=== PATIENT | female | born 1995 | race Caucasian/White ===

== ENCOUNTER → 2019-08-23 | Emergency (ER) | payer SELFPAY | PROVIDERS: Emergency Provider Emergency Medicine; Family Provider Physician Assistant Medical; Visit Provider Emergency Medicine | DX: J20.9 Acute bronchitis, unspecified (principal) | CPT/HCPCS: 71046; 94640; 99283 ==

== ENCOUNTER 2019-09-15 18:27 | Emergency (ER) | payer BC, SELFPAY ==
--- NOTE | 2019-09-15 | US_ITS ---
WS: [id number] TRANSABDOMINAL PELVIC AND TRANSVAGINAL PELVIC ULTRASOUND HISTORY: VAGINAL BLEEDING LAST 12 HOURS WITH PAIN COMPARISON: 01/20/2019 Uterus: 5.2 cm x 4.6 cm x 3.0 cm. Normal size. No mass or abnormality. Endometrium: 0.4 cm. Normal homogeneity throughout. Right ovary: prior RIGHT oophorectomy. Left ovary: 3.0 cm x 2.2 cm x 2.8 cm. Small follicles. No cystic or solid mass. Normal vascularity. No free fluid. US/US pelvic with transvaginal IMPRESSION: 1. Status post RIGHT nephrectomy. 2. No intrauterine gestation. Normal endometrium. If patient does have a posit bridget beta hCG ectopic cannot be excluded.
[2019-09-15 18:30] VITALS: BP 127/84; PULSE 85; RESP 18; TEMP 36.4; O2SAT 98; BMI 32.8
--- NOTE | 2019-09-15 18:39 | ED_ITS ---
Entered by Lin Daly, acting as scribe for HPI - Female Genitourinary General: Chief complaint: Vaginal Bleeding Stated complaint: PREG-FOUND OUT YESTERDAY/BLEEDING Time Seen by Provider: 09/15/19 18:39 Source: patient and family Mode of arrival: ambulatory Limitations: no limitations History of Present Illness: HPI Narrative: Marium is a very nice 24-year-old female who comes in complaining of vaginal bleeding and pelvic cramping. She recently had a positive home test. This will be her second her first was successful with a healthy child. She denies any fever or other discharge. She has no radiation of pain, fever, dysuria, hematuria or other complaints. MD elicited complaint: vaginal bleeding Onset (ago): day(s) (last night) Location of symptoms: vaginal Severity: moderate Quality of pain: cramping Vaginal bleeding: moderate and # pads per hour (2-3 a hour) Exacerbating factors: none Relieving factors: none Associated symptoms: Reports abdominal pain and vaginal bleeding; Deny headache(s), syncope or vaginal discharge Treatment prior to arrival: none Patient : Yes Review of Systems General: Reports: other (negative unless marked) Const: Reports: other (loss of appetite ) Eyes: Denies: change in vision or blurry vision ENMT: Denies: throat pain, painful swallowing, hoarseness, ear pain, ear discharge, Change in hearing or nasal discharge Card: Denies: chest pain, palpitations, irregular heart rhythm, syncope, pre- syncope, shortness of breath on exertion or shortness of breath when lying down Resp: Denies: shortness of breath, productive cough, non-productive cough, wheezing, coughing up blood or chest congestion GI: Reports: abdominal pain : Reports: vaginal bleeding; Denies: flank pain, painful urination, urinary frequency, urinary urgency, decreased urine ouput, urinary incontinence, blood in urine or vaginal discharge Musc: Denies: neck pain, back pain, extremity pain, extremity swelling, joint pain, joint swelling, joint warmth or joint stiffness Skin/Breast: Denies: rash, skin tenderness or yellow skin Neuro: Denies: headache, numbness in extremities, weakness in extremities, changes in sensation, lack of coordination, difficulty walking, dizziness, vertigo or confusion Endo: Denies: excessive thirst, tired all the time, cold intolerance, excessive sweating, flushing or hot flashes Perico/Lymph: Denies: easy bruising, easy bleeding, petechiae or enlarged lymph nodes All/Imm: Denies: hives, throat swelling, tongue swelling, facial swelling or acute wheezing PFSH ED PFSH: Statuses (acute, chronic, etc) shown below reflect problem list status as previously entered and may not be historically accurate Social History Smoking and tobacco status: never smoked Physical Exam Const: COMMON NORMALS: no apparent distress, oriented x3, no limitations, healthy appearing and well nourished EXAM LIMITATIONS: no altered mental status GENERAL APPEARANCE: cooperative, well kempt and well developed ORIENTATION/CONSCIOUSNESS: Yes awake HENMT: COMMON NORMALS: normocephalic, head/scalp atraumatic, hearing grossly normal bilaterally, external ears normal, EAC's normal, external nose normal and moist oral mucous membranes HEAD & SCALP: normal to inspection, normocephalic and atraumatic FACE & SINUS: normal facial exam and face symmetric NOSE: external nose normal and nares normal EXTERNAL EAR: Yes external ears normal EXTERNAL AUDITORY CANAL: EAC's normal MOUTH: oral and palatal mucosa normal and tongue normal Eye: COMMON NORMALS: PERRL, EOMs intact bilaterally, conjunctivae normal and no scleral icterus GENERAL EYE: normal appearance of both eyes and normal light reflex CONJUNCTIVA: Yes conjunctivae normal SCLERA: sclerae normal CORNEA: Yes corneas normal PUPIL: Yes PERRL DIRECT OPHTHALMOSCOPY: Yes normal light reflex Neck/C-Spine: COMMON NORMALS: full ROM, no lymphadenopathy, supple, no meningeal signs and no JVD GENERAL: Yes normal visual inspection and Yes trachea midline CERVICAL SPINE: Yes cervical ROM normal Chest: COMMONS NORMALS: inspection of chest normal and palpation of chest normal Resp: COMMON NORMALS: normal respiratory effort, no retractions, no use of accessory muscles and clear to auscultation bilaterally EFFORT & INSPECTION: Yes able to speak in complete sentences AUSCULTATION: clear to auscultation bilaterally Cardio: COMMON NORMALS: no JVD, regular rate, regular rhythm, S1 normal heart sound, S2 normal heart sound, no gallops, no clicks, no murmurs and no rub JUGULAR VENOUS DISTENTION: no JVD RATE: regular rate RHYTHM: regular rhythm HEART SOUNDS: S1 normal and S2 normal GI: COMMON NORMALS: soft to palpation, non-tender, no hepatosplenomegaly and no masses INSPECTION: Yes normal to inspection PALPATION: Yes soft and Yes no hepatosplenomegaly : COMMON NORMALS: Yes no CVA tenderness BLADDER/KIDNEY EXAM: Yes no CVA tenderness SPECULUM EXAM - VAGINA: Yes vaginal bleeding, No tissue present in vagina, No vaginal mass, No vaginal swelling, No vaginal tenderness, No vaginal discharge and No vaginal ecchymosis SPECULUM EXAM - CERVIX: No cervical os open, Yes cervical os closed, No tissue present in the cervical os, Yes cervical bleeding, Yes watery cervix and No cervical tenderness BIMANUAL EXAM - VAGINA & UTERUS: Yes normal cervical palpation, No cervical motion tenderness, No cervical tenderness and Yes uterine size normal BIMANUAL EXAM - ADNEXA, OTHER: No adnexal tenderness and No cul-de-sac tenderness RECTO-VAGINAL: no cul-de-sac tenderness OB/EXTERNAL & SPECULUM: vaginal bleeding; no tissue noted in vagina and cervical os open Back/Pelvis: COMMON NORMALS: no CVA tenderness, thoracic and lumbar spine nor mal to inspection, no thoracic nor lumbar tenderness and thoraco-lumbar ROM normal Extremity: COMMON NORMALS: normal to inspection, full ROM, normal capillary refill, no joint enlargement, no clubbing, cyanosis or edema and no calf tenderness Neuro: COMMON NORMALS: oriented x3, CN's II-XII intact bilaterally, moves all extremities, no focal motor deficits and no sensory deficits noted MENINGEAL SIGNS: Yes no meningeal signs Psych: COMMON NORMALS: mental status grossly normal, thought process normal, cooperative, affect normal, speech normal and activity/motor behavior normal APPEARANCE: Yes well kempt SPEECH: Yes normal speech THOUGHT PROCESS: normal thought process Skin: COMMON NORMALS: no rashes or lesions noted, skin turgor normal, no jaundice, no petechiae and no mottling GENERAL SKIN EXAM: no rashes or lesions noted and turgor normal Course Vital Signs: Vital signs: Vital Signs Temperature 97.5 F L 09/15/19 18:30 Pulse Rate 78 09/15/19 20:48 Respiratory Rate 16 09/15/19 20:48 Blood Pressure 128/82 09/15/19 20:48 Pulse Oximetry 96 09/15/19 20:48 MDM - Female MDM Narrative: Medical decision making narrative: Arrival - Marium 24-year-old female comes in with vaginal bleeding and cramping. Differential includes normal , threatened miscarriage or incomplete , ectopic preg shamir among many others. This time we will begin with lab work, ultrasound and pelvic exam to determine the best course of action. 2005 -the patient is relieved to hear that she is not . Her quantitative hCG is as low as our lab goes. On exam she has vaginal bleeding but her cervical loss is closed. It is unclear now whether the patient really even had a positive home test but the incomplete miscarriage would explain her positive home test and her early vaginal bleeding. There is no sign of ectopic on her ultrasound and her endometrium is thin. The patient agrees to follow-up with Dr. Moreno for repeat testing but at this time she is feeling better and would like to go home. Her labs show no sign of anemia and she does not have any lightheadedness, dizziness or near syncopal type symptoms. Lab Data: Attestation: I reviewed the patient's lab results. Labs: Lab Results 09/15/19 09/15/19 09/15/19 Range/Units 18:48 18:48 18:48 WBC 6.9 (4.0-10.0) 10^3/ uL RBC 4.07 L (4.1-5.3) 10^6/u L Hgb 11.8 (11.5-15.3) g/dL Hct 35.5 L (37.0-47.0) % MCV 87.2 (81-99) fL MCH 29.0 (28.0-34.0) pg MCHC 33.2 (30.0-36.0) g/dL RDW 12.8 (12.1-15.1) % Plt Count 316 (130-400) 10^3/c mm MPV 9.5 (7.4-10.4) fL Neut % (Auto) 68.0 % Lymph % (Auto) 20.4 % Barron % (Auto) 10.0 % Eos % (Auto) 0.6 % Baso % (Auto) 0.6 % Neut # (Auto) 4.7 (1.8-7.7) 10^3/u L Lymph # (Auto) 1.4 (0.8-4.8) 10^3/u L Barron # (Auto) 0.7 (0.2-0.9) 10^3/u L Eos # (Auto) 0.0 (0.0-0.8) 10^3/u L Baso # (Auto) 0.0 (0.0-0.1) 10^3/u L Nucleated RBC % (a uto) 0 % Nucleated RBCs # 0.0 /100WBC Sodium 137 (136-145) mmol/L Potassium 3.8 (3.5-5.1) mmol/L Chloride 100 (98-107) mmol/L Carbon Dioxide 23 (22-29) mmol/L Anion Gap 17.8 (5-19) BUN 10 (6-20) mg/dL Creatinine 0.8 (0.5-0.9) mg/dL GFR Calculation 87.4 L (90-130) mL/min Glucose 126 H (74-109) mg/dL Calcium 9.7 (8.5-10.5) mg/dL Total Bilirubin 0.3 (0.15-1.2) mg/dL AST 22 (0-32) U/L ALT 15 (0-33) U/L Alkaline Phosphata se 102 (35-105) IU/L Total Protein 7.5 (6.6-8.7) g/dL Albumin 4.6 (3.5-5.2) g/dL Globulin 2.9 (1.3-4.6) g/dL Ser , Tree i-Qnt 0.50 mIU/mL Urine Color (Yellow) Urine Appearance (CLEAR) Urine pH (5-7) Ur Specific Gravit y (1.005-1.030) Urine Protein (Negative) Urine Glucose (UA) (Normal) Urine Ketones (Negative) Urine Occult Blood (Negative) Urine Nitrate (Negative) Urine Bilirubin (NEGATIVE) Urine Urobilinogen (Negative) mg/dL Ur Leukocyte Jaycee ase (Negative) Urine RBC (0-2) /hpf Urine WBC (0-5) /hpf Ur Squamous Epith Cells (0-5) Urine Bacteria (NONE) Urine Mucus Blood Type A Positive 09/15/19 Range/Units 19:10 WBC (4.0-10.0) 10^3/ uL RBC (4.1-5.3) 10^6/u L Hgb (11.5-15.3) g/dL Hct (37.0-47.0) % MCV (81-99) fL MCH (28.0-34.0) pg MCHC (30.0-36.0) g/dL RDW (12.1-15.1) % Plt Count (130-400) 10^3/c mm MPV (7.4-10.4) fL Neut % (Auto) % Lymph % (Auto) % Barron % (Auto) % Eos % (Auto) % Baso % (Auto) % Neut # (Auto) (1.8-7.7) 10^3/u L Lymph # (Auto) (0.8-4.8) 10^3/u L Barron # (Auto) (0.2-0.9) 10^3/u L Eos # (Auto) (0.0-0.8) 10^3/u L Baso # (Auto) (0.0-0.1) 10^3/u L Nucleated RBC % (a uto) % Nucleated RBCs # /100WBC Sodium (136-145) mmol/L Potassium (3.5-5.1) mmol/L Chloride (98-107) mmol/L Carbon Dioxide (22-29) mmol/L Anion Gap (5-19) BUN (6-20) mg/dL Creatinine (0.5-0.9) mg/dL GFR Calculation (90-130) mL/min Glucose (74-109) mg/dL Calcium (8.5-10.5) mg/dL Total Bilirubin (0.15-1.2) mg/dL AST (0-32) U/L ALT (0-33) U/L Alkaline Phosphata se (35-105) IU/L Total Protein (6.6-8.7) g/dL Albumin (3.5-5.2) g/dL Globulin (1.3-4.6) g/dL Ser , Tree i-Qnt mIU/mL Urine Color Yellow (Yellow) Urine Appearance Sl hazy (CLEAR) Urine pH 5 (5-7) Ur Specific Gravit y 1.025 (1.005-1.030) Urine Protein Neg (Negative) Urine Glucose (UA) Norm (Normal) Urine Ketones 2+ H (Negative) Urine Occult Blood 3+ H (Negative) Urine Nitrate Negative (Negative) Urine Bilirubin 1+ H (NEGATIVE) Urine Urobilinogen Norm (Negative) mg/dL Ur Leukocyte Jaycee ase Negative (Negative) Urine RBC 40-50 H (0-2) /hpf Urine WBC 5-10 H (0-5) /hpf Ur Squamous Epith Cells 0-4 H (0-5) Urine Bacteria 3+ H (NONE) Urine Mucus 2+ Blood Type Imaging Data: US: Radiologist's impression: Tech interpretation, pelvic ultrasound -no signs of ectopic or intrauterine . Cervix is closed. Right adnexa and ovary surgically absent. Left ovary normal with normal flow and no sign of torsion. No free fluid in the cul-de-sac. No obvious abnormalities. Discharge Plan Discharge Patient Disposition: Home, Self-Care Clinical Impression: Vaginal bleeding, Incomplete Condition: Stable Prescriptions: New Zofran 4 mg tablet 4 mg PO DAILY PRN (Reason: nausea and vomiting) 5 Days Qty: 10 RF: 0 Motrin IB 200 mg tablet 200 mg PO QID PRN (Reason: pain) Qty: 60 RF: 0 Discharge Orders: Discharge Order (Routine); Ordered 09/15/19 Ordered By: Temi Spann Referrals: aJmil Sr [Primary Care Provider] - Humberto Moreno MD [Physician] - 4-7 days Discharge Diet: Advance as tolerated Discharge Activity: Increase activity as tolerated Patient Instructions: Spontaneous Miscarriage (ED), Menstruation (ED) Activity Restrictions/Additional Instructions: Please return to the ER immediately for any of the signs or symptoms listed on your discharge instruction sheets, worsening/changing of your symptoms, you are not getting better as quickly as expected, or for ANY other cause or concerns. Return to the ER for fever, heavier bleeding, increased pain, vomiting, or for any other cause for concern. Discharge Date/Time: 09/15/19 20:49 Coding Level of Care Code ED [employer] Insurance Agent for Chg Fwd Exam Problem Focused The documentation recorded by the Addy correa Bridget Annette, accurately reflects the service I personally performed and the decisions made by Zana vaca Eli N Sep 15, 2019 18:27
[2019-09-15 18:59] LABS: Basophils % 0.6 %; Eosinophils % 0.6 %; Hematocrit 35.5 % (37.0-47.0); Hemoglobin 11.8 g/dL (11.5-15.3); Lymphocytes # 1.4 10^3/uL (0.8-4.8); Lymphocytes % 20.4 %; Mean Corpuscular HGB Conc 33.2 g/dL (30.0-36.0); Mean Corpuscular Volume 87.2 fL (81-99); Mean Platelet Volume 9.5 fL (7.4-10.4); Monocytes # 0.7 10^3/uL (0.2-0.9); Neutrophils # 4.7 10^3/uL (1.8-7.7); Nucleated Red Blood Cells % 0 %; Platelet Count 316 10^3/cmm (130-400); Red Blood Count 4.07 10^6/uL (4.1-5.3); Red Cell Distribution Width 12.8 % (12.1-15.1); White Blood Count 6.9 10^3/uL (4.0-10.0)
[2019-09-15 19:24] LABS: Blood Urine 3+ (Negative); Glucose Urine UA Norm (Normal); Ketones Urine 2+ (Negative); Nitrate Urine Negative (Negative); Protein Urine Neg (Negative); Specific Gravity, Urine 1.025 (1.005-1.030); Urine Appearance SL Hazy (CLEAR); Urine Color Yellow (Yellow); pH Urine 5 (5-7)
[2019-09-15 19:25] LABS: Bilirubin Urine 1+ (NEGATIVE); Leukocyte Esterase Urine Negative (Negative); Urobilinogen Urine Norm (Negative)
[2019-09-15 19:25] LABS: Alanine Aminotransferase 15 U/L (0-33); Albumin Level 4.6 g/dL (3.5-5.2); Alkaline Phosphatase 102 IU/L (35-105); Anion Gap 17.8 (5-19); Aspartate Amino Transferase 22 U/L (0-32); Blood Urea Nitrogen 10 mg/dL (6-20); Calcium 9.7 mg/dL (8.5-10.5); Carbon Dioxide 23 mmol/L (22-29); Chloride 100 mmol/L (98-107); Globulin 2.9 g/dL (1.3-4.6); Glomerular Filtration Rate 87.4 mL/min (90-130); Glucose 126 mg/dL (74-109); Potassium 3.8 mmol/L (3.5-5.1); Sodium 137 mmol/L (136-145); Total Bilirubin 0.3 mg/dL (0.15-1.2); Total Protein 7.5 g/dL (6.6-8.7)
[2019-09-15 19:28] LABS: RBC Urine 40-50 /hpf (0-2)
[2019-09-15 19:29] LABS: Add Urine Culture? Yes; Bacteria Urine 3+; Mucus Urine 2+; Squamous Epithelial Cell Urine 0-4 (0-5)
--- NOTE | 2019-09-15 19:44 | PC.NURSE ---
patient set up for pelvic exam, dr turner notified
[2019-09-15] MEDS: ketorolac 60 mg/2 mL INJ IM (20:26)
[2019-09-15 20:48] VITALS: BP 128/82; PULSE 78; RESP 16; O2SAT 96
--- NOTE | 2019-09-16 12:27 | DCPLANNER ---
global marketing manager had message to schedule a follow up appointment for patient with [facility]. global marketing manager called the [facility] spoke with Eli, gave clinic patients information. global marketing manager was told that patients information would be printed and reviewed. Clinic will call assistant case manager and patient with appointment information.
--- NOTE | 2019-09-21 14:34 | DCPLANNER ---
Eli from [facility] called upper caser and informed upper caser that patients records were reviewed, and that no follow up appointment is needed at this time. Patient is aware and doing fine.
== END 2019-09-15 20:49 | disposition home or self-care (01) ==
PROVIDERS: Emergency Provider Emergency Medicine; Family Provider Physician Assistant Medical; PCP Physician Assistant Medical
DX: O03.4 Incomplete spontaneous abortion without complication (principal)
CPT/HCPCS: 76830; 76856; 80053; 81001; 84702; 85025; 86900; 87086; 87210; 87491; 87591; 96372; 99283; J1885